=== PATIENT | male | born 1960 | race African-American/Black ===

== ENCOUNTER 2023-08-08 10:04 | Inpatient (IN) | payer SELFPAY ==
[~2023-08-08] VITALS: Ht 170.2 cm; Wt 91.3 kg
[2023-08-08 10:33] LABS: BASOPHILS % 0.7 % (0.0-2.0); EOSINOPHILS % 2.4 % (0.0-5.0); HEMATOCRIT. 42.4 % (42.0-52.0); HEMOGLOBIN. 14.1 g/dL (14.0-18.0); LYMPHOCYTES % 30.7 % (20.0-50.0); MEAN CORPUSCULAR HEMOGLOBIN 29.5 pg (28.0-32.0); MEAN CORPUSCULAR HGB CONC 33.2 g/dL (31.0-37.0); MEAN CORPUSCULAR VOLUME 88.8 fL (80.0-94.0); MEAN PLATELET VOLUME 8.7 fl (7.4-10.4); MONOCYTES % 8.2 % (2.0-8.0); PLATELET 256 x1000/uL (130-400); RED BLOOD CELL COUNT 4.78 mill/uL (4.7-6.1); RED CELL DISTRIBUTION WIDTH 13.9 % (11.6-14.6); WHITE BLOOD COUNT 5.4 x1000/uL (4.5-11.0)
[2023-08-08 10:48] LABS: CLARITY URINE CLEAR (CLEAR); COLOR URINE YELLOW (YELLOW); GLUCOSE URINE NEGATIVE (NEGATIVE); KETONES URINE NEGATIVE (NEGATIVE); LEUKOCYTE ESTERASE URINE NEGATIVE (NEGATIVE); NITRITE URINE NEGATIVE (NEGATIVE); OCCULT BLOOD URINE NEGATIVE (NEGATIVE); PH URINE 6.5 (4.5-8.0); PROTEIN URINE NEGATIVE (NEGATIVE); SPECIFIC GRAVITY URINE 1.017 (1.005-1.030)
[2023-08-08 10:49] LABS: ALANINE AMINOTRANSFERASE 13 IU/L (10-49); ALBUMIN 4.1 g/dL (3.2-4.8); ASPARTATE AMINOTRANSFERASE 24 IU/L (<34); BILIRUBIN TOTAL 0.6 mg/dL (0.1-1.0); CALCIUM 8.4 mg/dL (8.7-10.4); CARBON DIOXIDE 28 mEq/L (21-32); CHLORIDE 103 mEq/L (98-107); CREATININE 1.3 mg/dL (0.6-1.3); GLUCOSE 137 mg/dL (70-105); POTASSIUM 3.5 mEq/L (3.5-5.1); PROTEIN TOTAL 7.1 g/dL (6.0-8.3); SODIUM 139 mEq/L (136-145); UREA NITROGEN BLOOD 14 mg/dL (9-23)
[2023-08-08] MEDS ORDERED: HYDRALAZINE 20MG/ML VIAL IV ONE (11:30)
[2023-08-08] MEDS: METOPROLOL SUCCINATE 50MG ER TABLET PO STA (12:23)
[2023-08-08] MEDS: HYDRALAZINE HCL 50MG TABLET PO ONE (12:24)
[2023-08-08] MEDS: ACETAMINOPHEN 325MG TABLET PO ONE (12:24)
[2023-08-08 12:38] LABS: TROPONIN I HIGH SENSITIVITY 72 ng/L (3.0-53)
[2023-08-08] MEDS: ASPIRIN 325MG EC TABLET PO ONE (12:54)
[2023-08-08] MEDS ORDERED: IPRATROPIUM/ALBUTEROL 0.5-3(2.5)MG/3ML NEB HHN PRN (16:45)
[2023-08-08] MEDS ORDERED: ONDANSETRON HCL 4MG/2ML INJ IV PRN (16:45)
[2023-08-08] MEDS ORDERED: MAGNESIUM/ALUMINUM HYDROXIDE/SIMETHICONE 30ML UDC PO PRN (16:45)
[2023-08-08] MEDS ORDERED: CLONIDINE 0.1MG TABLET PO PRN (16:45)
[2023-08-08] MEDS ORDERED: ACETAMINOPHEN 325MG TABLET PO PRN ×2 (16:45)
[2023-08-08] MEDS ORDERED: DOCUSATE SODIUM 100MG CAPSULE PO PRN (16:45)
[2023-08-08] MEDS ORDERED: GUAIFENESIN 200MG/10ML SUGAR FREE UDC PO PRN (16:45)
[2023-08-08] MEDS ORDERED: DEXTROSE 50% WATER 50ML SYRINGE IV PRN (17:00)
[2023-08-08 17:04] LABS: TROPONIN I HIGH SENSITIVITY 77 ng/L (3.0-53)
[2023-08-08] MEDS: BLOOD SUGAR DIAGNOSTIC STRIP TEST SCH (17:14)
[2023-08-08] MEDS: HYDRALAZINE 20MG/ML VIAL IV NR (17:18)
[2023-08-08] MEDS: AMLODIPINE 5MG TABLET PO SCH (18:04)
[2023-08-08 20:00] VITALS: BP 160/92; PULSE 97; RESP 16; TEMP 97.4
[2023-08-08] MEDS: INSULIN LISPRO 100 UNITS/ML SUBCUT SCH (21:00)
[2023-08-08] MEDS: FAMOTIDINE 20MG TABLET PO SCH (22:16)
[2023-08-08] MEDS: ENOXAPARIN 40MG/0.4ML SYR SUBCUT SCH (22:16)
[2023-08-08] MEDS: ATORVASTATIN CALCIUM 20MG TABLET PO SCH (22:16)
[2023-08-09] VITALS: BP 142/93; PULSE 85; RESP 16; TEMP 97.1
[2023-08-09 01:13] LABS: CREATINE KINASE MB FRACTION 0.8 ng/mL (0.5-3.6)
[2023-08-09 06:27] VITALS: BP 158/89; PULSE 87; RESP 16; TEMP 97.2
[2023-08-09 06:38] LABS: EOSINOPHILS % 3.2 % (0.0-5.0); HEMATOCRIT. 40.6 % (42.0-52.0); HEMOGLOBIN. 13.8 g/dL (14.0-18.0); LYMPHOCYTES % 32.6 % (20.0-50.0); MEAN CORPUSCULAR HEMOGLOBIN 29.8 pg (28.0-32.0); MEAN CORPUSCULAR HGB CONC 33.9 g/dL (31.0-37.0); MEAN CORPUSCULAR VOLUME 87.8 fL (80.0-94.0); MEAN PLATELET VOLUME 8.9 fl (7.4-10.4); MONOCYTES % 11.7 % (2.0-8.0); NEUTROPHILS % 51.5 % (40.0-76.0); PLATELET 256 x1000/uL (130-400); RED BLOOD CELL COUNT 4.62 mill/uL (4.7-6.1); RED CELL DISTRIBUTION WIDTH 13.8 % (11.6-14.6); WHITE BLOOD COUNT 5.8 x1000/uL (4.5-11.0)
[2023-08-09 06:58] LABS: ALANINE AMINOTRANSFERASE 10 IU/L (10-49); ALBUMIN 3.9 g/dL (3.2-4.8); ASPARTATE AMINOTRANSFERASE 20 IU/L (<34); BILIRUBIN TOTAL 0.6 mg/dL (0.1-1.0); CALCIUM 8.5 mg/dL (8.7-10.4); CARBON DIOXIDE 30 mEq/L (21-32); CHLORIDE 107 mEq/L (98-107); CHOLESTEROL 192 mg/dL (<200); CREATINE KINASE 106 IU/L (46-171); CREATINE KINASE MB FRACTION 0.8 ng/mL (0.5-3.6); CREATININE 1.5 mg/dL (0.6-1.3); GLUCOSE 105 mg/dL (70-105); HDL CHOLESTEROL 38 mg/dL (>55); LDL CHOLESTEROL 140 mg/dL (5-100); POTASSIUM 3.5 mEq/L (3.5-5.1); SODIUM 142 mEq/L (136-145); T4 FREE 1.04 ng/dL (0.89-1.76); THYROID STIMULATING HORMONE 1.14 uIU/mL (0.55-4.78); TRIGLYCERIDE 92 mg/dL (0-150); UREA NITROGEN BLOOD 16 mg/dL (9-23)
[2023-08-09 07:37] LABS: HEPATITIS A AB IGM NEGATIVE (Negative); HEPATITIS B CORE AB IGM NEGATIVE (Negative); HEPATITIS B SURFACE ANTIGEN NEGATIVE (Negative); HEPATITIS C AB NON REACTIVE (Neg) (Negative)
[2023-08-09 07:44] LABS: TROPONIN I HIGH SENSITIVITY 67 ng/L (3.0-53)
[2023-08-09 08:00] VITALS: BP 157/82; PULSE 79; RESP 18; TEMP 97.5
[2023-08-09] MEDS: METOPROLOL SUCCINATE 50MG ER TABLET PO SCH (09:16)
[2023-08-09] MEDS: ASPIRIN 81MG TABLET PO SCH (09:16)
[2023-08-09] MEDS ORDERED: GLIP1TAB5 MT (10:31)
[2023-08-09] MEDS ORDERED: METO-396 MT (10:31)
[2023-08-09] MEDS ORDERED: AMLO-504 MT (10:31)
[2023-08-09] MEDS ORDERED: ATOR40TA70 MT (10:31)
[2023-08-09 12:00] VITALS: BP 134/83; PULSE 84; RESP 18; TEMP 98
[2023-08-09 12:57] VITALS: BP 134/83; PULSE 84; TEMP 98; O2SAT 98
[2023-08-09 16:00] VITALS: BP 144/80; PULSE 77; RESP 18; TEMP 97.8
== END 2023-08-09 17:10 | disposition home or self-care (01) | DRG 199 ==
LOC: ER 10:04 → EDBEDREQ 12:49 → 7EST 15:45 → EDBEDREQTM 15:46 → EDBEDREQ 15:46
PROVIDERS: ADMIT Internal Medicine; ATTEND Internal Medicine
DX: I16.1 Hypertensive emergency (principal); I21.4 Non-ST elevation (NSTEMI) myocardial infarction; E11.9 Type 2 diabetes mellitus without complications; E78.00 Pure hypercholesterolemia, unspecified; I10 Essential (primary) hypertension; Z79.84 Long term (current) use of oral hypoglycemic drugs; Z91.148 Patient's other noncompliance with medication regimen for other reason; Z79.899 Other long term (current) drug therapy
CPT/HCPCS: 36415; 71045; 80053; 80061; 81003; 82550; 82553; 82962; 83036; 83880; 84439; 84443; 84484; 85025; 86705; 86709; 87340; 93005; 93970; 99285; J0360; J1650; J1815